=== PATIENT | female | born 1950 | race Caucasian/White ===

== ENCOUNTER 2016-10-15 13:08 | Emergency (ER) | payer SELFPAY ==
[~2016-10-15] VITALS: Ht 149.9 cm; Wt 48.0 kg
[2016-10-15 13:09] VITALS: Ht 149.9 cm; Wt 48.0 kg
== END 2016-10-15 22:08 | disposition left against medical advice (07) ==
LOC: E/R 13:08
DX: Z53.21 Procedure and treatment not carried out due to patient leaving prior to being seen by health care provider (principal)